=== PATIENT | female | born 1980 | race Hispanic/Latino ===

== ENCOUNTER → 2017-10-12 | Outpatient (CLI) | payer BC | END | disposition home or self-care (01) | LOC: OIH 16:26 | PROVIDERS: ATTEND Internal Medicine | DX: M47.892 Other spondylosis, cervical region (principal) | CPT/HCPCS: 72040 ==

== ENCOUNTER → 2018-06-13 | Outpatient (CLI) | payer MEDICAID | END | disposition home or self-care (01) | LOC: OIH 14:30 | PROVIDERS: ATTEND Internal Medicine | DX: M54.12 Radiculopathy, cervical region (principal) | CPT/HCPCS: 72040 ==